=== PATIENT | female | born 1990 | race Two or more races ===

== ENCOUNTER 2021-04-14 04:44 | Inpatient (IN) | payer OTHER ==
[~2021-04-14] VITALS: Ht 152.4 cm; Wt 52.2 kg
[2021-04-14] MEDS ORDERED: PRENATAL ONE D1 EACH PO (07:41)
== END 2021-04-15 09:13 | disposition home or self-care (01) | DRG 833 ==
LOC: LDR 04:44
PROVIDERS: ADMIT Obstetrics & Gynecology; ATTEND Obstetrics & Gynecology
PROC: 4A1HXFZ Monitoring of Products of Conception, Cardiac Rhythm, External Approach (ICD-10-PCS; principal; 2021-04-14)
DX: O47.03 False labor before 37 completed weeks of gestation, third trimester (principal); Z3A.31 31 weeks gestation of pregnancy